=== PATIENT | female | born 1990 | race Caucasian/White ===

== ENCOUNTER 2019-03-22 01:19 | Emergency (ER) | payer SELFPAY ==
[~2019-03-22] VITALS: Ht 160 cm; Wt 80.0 kg
[2019-03-22 01:21] VITALS: BP 145/85; PULSE 98; RESP 20; Ht 160 cm; Wt 80.0 kg
== END 2019-03-22 06:50 | disposition left against medical advice (07) ==
LOC: E/R 01:19
DX: Z53.21 Procedure and treatment not carried out due to patient leaving prior to being seen by health care provider (principal)